=== PATIENT | female | born 1960 | race Two or more races ===

== ENCOUNTER 2018-07-21 04:55 | Emergency (ER) | payer OTHER ==
[~2018-07-21] VITALS: Ht 152.4 cm; Wt 77.1 kg
[~2018-07-21 04:55] MED LIST: ALPRAZOLAM0.25 MG PO; CEFUROXIME250 MG PO; CLONAZEPAM1 MG; CYMBALTA30 MG; EC-NAPROSYN500 MG PO; FAMOTIDINE40 MG PO; FLEXERIL10 MG PO; SYNTHROID100 MCG PO; VENLAFAXINE H37.5 MG; [UNRECOGNIZED DRUG - OTHER] PO
== END 2018-07-21 15:57 | disposition home or self-care (01) ==
LOC: ER 04:55
DX: K59.09 Other constipation (principal); R10.32 Left lower quadrant pain

== ENCOUNTER 2020-02-04 08:31 | Outpatient (CLI) | payer OTHER | END 2020-02-04 08:38 | disposition home or self-care (01) | LOC: RX STUDY 08:31 | PROVIDERS: ATTEND Otolaryngology | DX: R13.13 Dysphagia, pharyngeal phase (principal) ==